=== PATIENT | male | born 1975 | race Caucasian/White ===

== ENCOUNTER 2020-12-23 15:53 | Emergency (ER) | payer OTHER ==
[~2020-12-23 15:53] MED LIST: ASPIRIN CHEWABL81 MG PO; CYCLOBENZAPRINE5 MG PO; MOBIC15 MG PO; PHENERGAN 25 MG25 M1 PO; PRILOSEC20 MG PO
[2020-12-23] MEDS ORDERED: IBUPROFEN600 MG PO (19:31)
[2020-12-23] MEDS ORDERED: NORFLEX 100 MG100 MG PO (19:31)
== END 2020-12-23 19:47 | disposition home or self-care (01) ==
LOC: ER1 15:53
DX: S40.012A Contusion of left shoulder, initial encounter (principal); I10 Essential (primary) hypertension; Z79.01 Long term (current) use of anticoagulants; V49.40XA Driver injured in collision with unspecified motor vehicles in traffic accident, initial encounter; Y92.410 Unspecified street and highway as the place of occurrence of the external cause
CPT/HCPCS: 71046; 93005; 99283